=== PATIENT | male | born 1955 | race Caucasian/White ===

== ENCOUNTER 2017-02-27 20:51 | Emergency (ER) | payer BC, OTHER ==
[~2017-02-27] VITALS: Ht 185.4 cm; Wt 128.9 kg
[~2017-02-27 20:51] MED LIST: 5-HY100C PO; MAGN100T PO; MELA1TAB15 PO; MELA1TAB7 PO; OMEP10CA2 PO; OXYC-229 PO; THRE500T PO; TIOT18CA INH; VALE250C PO; ZOLP10TA PO; [UNRECOGNIZED DRUG - CODE] PO; [UNRECOGNIZED DRUG - CODE] PO
[2017-02-27 21:10] VITALS: BP 124/72
== END 2017-02-28 00:13 | disposition home or self-care (01) ==
LOC: ED 23:59
DX: S06.0X0A Concussion without loss of consciousness, initial encounter (principal); Y04.0XXA Assault by unarmed brawl or fight, initial encounter; Y93.89 Activity, other specified; Y99.8 Other external cause status; Y92.009 Unspecified place in unspecified non-institutional (private) residence as the place of occurrence of the external cause
CPT/HCPCS: 70450; 70486; 71010